=== PATIENT | male | born 1990 | race Caucasian/White ===

== ENCOUNTER 2023-08-15 18:23 | Outpatient (REF) | payer SELFPAY ==
[2023-08-15 15:42] LABS: Calculated LDL 130 mg/dL (<100); Cholesterol 188 mg/dL (<200); HDL Cholesterol 38 mg/dL (40-60); Triglyceride 101 mg/dL (<150)
== END 2023-08-15 18:24 | disposition home or self-care (01) ==
LOC: NCHCN 18:23
PROVIDERS: PCP Internal Medicine; Visit Provider Nurse Practitioner Family
DX: E66.9 Obesity, unspecified (principal); Z13.1 Encounter for screening for diabetes mellitus
CPT/HCPCS: 80061; 83036

== ENCOUNTER 2024-01-01 15:42 | Emergency (ER) | payer SELFPAY ==
[2024-01-01 15:44] VITALS: BP 145/81; PULSE 92; RESP 18; TEMP 37.2; O2SAT 97
--- NOTE | 2024-01-01 16:25 | W.ED.GENAD ---
Discharge Plan Disposition Patient Disposition: Home Condition: Improving Discharge Details Chief Complaint: Laceration Clinical Impression: Laceration of wrist Primary Care Provider: Jas Collier ED Provider: Arnav Olivier Home Meds and New Rx's Prescriptions: No Action fluoxetine 10 mg capsule 10 mg PO DAILY hydroxyzine HCl 100 mg tablet 25 mg PO DAILY ibuprofen 800 MG tablet 800 mg PO QID PRN PRN (Reason: Pain) Qty: 30 0RF albuterol sulfate 8.5 GM HFA aerosol inhaler 2 puff Inhalation PRN PRN aspirin 325 MG tablet,delayed release (DR/EC) 325 mg PO Discharge Instructions Instructions: Stitches and rena Additional Instructions: Keep wound clean and dry. Please return to the emergency department for any worsening symptoms. HPI General Date/Time Provider Initiated Documentation: 01/01/24 16:13. 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 Hemostatic no foreign bodies, up-to-date with tetanus booster within the last year Related Data Home Medications Medication Instructions Recorded Confirmed ibuprofen 800 mg tablet 800 mg PO QID PRN PRN Pain #30 tabs 09/14/14 01/01/24 albuterol sulfate 90 mcg/actuation 2 puff inhalation PRN PRN 12/26/14 01/01/24 aerosol inhaler aspirin 325 mg tablet,delayed 325 mg PO 03/19/17 release fluoxetine 10 mg capsule 10 mg PO DAILY 08/12/23 01/01/24 hydroxyzine HCl 100 mg tablet 25 mg PO DAILY 08/12/23 01/01/24 Previous Rx's Medication Instructions Recorded ibuprofen 800 mg tablet 800 mg PO QID PRN PRN Pain #30 tabs 09/14/14 Allergies Allergy/AdvReac Type Severity Reaction Status Date / Time kiwi Allergy Unknown unknown Verified 01/01/24 15:49 General Stated Complaint: Laceration JUANY: 3 Review of Systems Narrative: Review of Systems Constitutional: negative Eyes: negative ENT: negative Cardiovascular: negative Respiratory: negative Gastrointestinal: negative : negative Musculoskeletal: negative Skin: Wrist laceration Neurologic: negative Psych: negative Exam Narrative Exam Narrative: Physical Examination General: alert, awake, cooperative, resting comfortably, no acute distress HEENT: normocephalic, atraumatic Skin: See extremity Neuro: AAOx3, normal speech, moving all extremities Extremities: 1.5 cm mildly gaping laceration to ulnar volar aspect of right wrist, some exposed subcutaneous fat no exposed tendinous or vascular structures, median radial and ulnar nerve sensory distribution intact, full flexion both proximally and distally intact Extension intact in fingers and wrist, ulnar and radial pulses intact, no foreign bodies appreciated Course Vital Signs Vital signs: Vital Signs Temperature 37.2 C 01/01/24 15:44 Pulse 92 H 01/01/24 15:44 Respiratory Rate 18 01/01/24 15:44 Blood Pressure 145/81 H 01/01/24 15:44 Pulse Oximetry 97 01/01/24 15:44 Temperature 37.2 C 01/01/24 15:44 Temperature Source Temporal Artery Scan 01/01/24 15:44 Pulse 92 H 01/01/24 15:44 Respiratory Rate 18 01/01/24 15:44 Respiratory Effort Normal, Non-Labored 01/01/24 15:50 Blood Pressure 145/81 H 01/01/24 15:44 Blood Pressure Position Sitting 01/01/24 15:44 Pulse Oximetry 97 01/01/24 15:44 Oxygen Delivery Method Room Air 01/01/24 15:44 Oxygen Flow Rate 0 01/01/24 15:44 Procedures Laceration Laceration 1: Site: upper extremity Side (If applicable): right Size (cm): 1.5 Description: linear Depth: simple, single layer Local Anesthetic: other anesthetic (LET) Pre-repair: wound explored, irrigated extensively and deep structures intact Skin layer closed with: vicryl Size (cm): 5-0 Number of sutures: 4 Technique: simple, interrupted Medical Decision Making 33-year-old male presents after accidental laceration to right wrist while doing the [employer], pottery mug broke into 2 clean pieces, patient sustained 1.5 cm mildly gaping laceration to ulnar volar aspect of right wrist, some exposed subcutaneous fat no exposed tendinous or vascular structures, median radial and ulnar nerve sensory distribution intact, full flexion both proximally and distally intact Extension intact in fingers and wrist, ulnar and radial pulses intact, no foreign bodies appreciated; will apply LET gel for analgesia, will irrigate extensively, discussed obtaining screening x-ray for foreign body however patient would like to defer as he has limited insurance and reassures me that mug broke into to clean pieces did not shatter, no evidence of foreign body upon my inspection initially and after irrigation. Will closed with absorbable Vicryl sutures. Home care instructions return precautions to be given 17: 34 patient resting comfortably no acute distress, wound anesthetized with L ET gel, irrigated extensively, explored, no foreign bodies appreciated, no deep structures involved, closed with 4 x 5-0 Vicryl simple interrupted bacitracin and Steri-Strips applied; ulnar and radial pulse intact flexion extension and sensation and involved limb intact Home care instructions and return precautions given Quality:SDOH Health Related Social Needs: No Data to Display PFSH All Active Problems (Updated 01/01/24 @ 17:35 by Arnav Olivier MD) Laceration of wrist (Acute) Medical History (Updated 01/01/24 @ 17:35 by Arnav Olivier MD) Exercise induced bronchospasm Nicotine dependence Obesity Panic disorder with agoraphobia Generalized anxiety disorder Snoring Nonulcer dyspepsia Backache Pain in right knee Family History (Updated 08/26/23 @ 14:11 by Cecelia Leone) Other Alcoholism Asthma Social History Smoking/Tobacco Use Status: Former Tobacco Use Smoking risk assessment performed?: Yes Alcohol Intake: current Alcohol Intake frequency: holidays/special occasions only Drug use: Never Substance use type: does not use
[2024-01-01 17:43] VITALS: BP 145/81; PULSE 70; RESP 18; TEMP 37.2; O2SAT 97
== END 2024-01-01 17:43 | disposition home or self-care (01) ==
PROVIDERS: Emergency Provider Emergency Medicine; PCP Internal Medicine
DX: S61.511A Laceration without foreign body of right wrist, initial encounter (principal); Z79.82 Long term (current) use of aspirin; Z87.891 Personal history of nicotine dependence; W25.XXXA Contact with sharp glass, initial encounter; Y93.G1 Activity, food preparation and clean up
CPT/HCPCS: 12001; 99283

== ENCOUNTER 2024-05-08 15:51 | Outpatient (REF) | payer SELFPAY | END 2024-05-08 15:52 | disposition home or self-care (01) | LOC: LBN 15:51 | PROVIDERS: PCP Internal Medicine; Visit Provider Physician Assistant | DX: J02.9 Acute pharyngitis, unspecified (principal) | CPT/HCPCS: 87070 ==

== ENCOUNTER 2024-05-10 12:30 | Outpatient (CLI) | payer SELFPAY ==
--- NOTE | 2024-05-10 10:15 | DI.RAD_ITS ---
Exam(s) XR CHEST 2V PA LATERAL EXAM: XR CHEST 2V PA LATERAL CLINICAL HISTORY: cough, ? pneumonia,R05.9 TECHNIQUE: 2D digital imaging was performed. Two views. COMPARISON: CR ABD FLAT UPRIGHT PA CHEST from 08/10/2014 FINDINGS: HEART: Normal size. Aorta: Not dilated. PULMONARY VASCULATURE: Normal. MEDIASTINUM: Unremarkable. LUNGS: Focal infiltrate seen at left lung apex. Remainder of the lung bruner are clear PLEURAL SPACE: No pleural effusion or pneumothorax. BONE:Unremarkable for age. SOFT TISSUES: Unremarkable. IMPRESSION: Left upper lobe pneumonia. DATA REPOSITORY: RADIATION DOSE DELIVERED:
== END 2024-05-10 12:50 ==
LOC: DI 12:34
PROVIDERS: PCP Internal Medicine; Visit Provider Physician Assistant
DX: J18.9 Pneumonia, unspecified organism (principal)
CPT/HCPCS: 71046

== ENCOUNTER 2024-06-21 13:59 | Outpatient (RCR) | payer SELFPAY | END 2024-07-10 23:59 | disposition home or self-care (01) | LOC: CARDOPNVT 13:59 | PROVIDERS: PCP Internal Medicine; Visit Provider Nurse Practitioner Family | DX: R55 Syncope and collapse (principal) | CPT/HCPCS: 93225 ==

== ENCOUNTER 2024-06-21 14:25 | Outpatient (CLI) | payer SELFPAY ==
--- OUTSIDE RECORDS SUMMARY | 2024-06-21 14:30 | XMS_ITS | Clinical Summary ---
Author Organization [facility] Address [address] [place] [address] Care Team Providers Care Grades 9 12 Tutor Name Role Phone June Renee APRN Primary Care Provider [phone] Social History Tobacco Use Types Packs/Day Years Used Date Smoking Tobacco: Never Assessed Sex and Gender Information Value Date Recorded Sex Assigned at Not on file Legal Sex Male 18:04 EST Gender Identity Not on file Sexual Orientation Not on file Plan of Treatment Health Maintenance Due Date Last Done Comments Hepatitis C Screen 1992 Hepatitis B Vaccine (1 of 3 - 19+ 3-dose series) 04/03 COVID-19 Vaccine ( season) 2024 Care Teams Grades 9 12 Tutor Relationship Specialty Start Date End Date June Renee APRN [address] [facility] [address] [place] [address] PCP - General 12/11/13
--- OUTSIDE RECORDS SUMMARY | 2024-06-21 14:30 | XMS_ITS | Encounter Summary ---
Author Organization [facility] Address [facility] [place] [address] Care Team Providers Care Claims Associate Name Role Phone Geovanna Irwin MD Primary Care Provider [phone] Reason for Visit * Reason Comments Verrucous Vulgaris Encounter Details Date Type Department Care Team (Late st Contact Info) Description 02/19/2014 3:00 PM EDT Follow-Up Dermatology at [facility] [address] [place] [address] Margaret Miles MD [facility] [address] [place] [address] Warts (Primary Dx) Discharge Disposition: Home Social History Tobacco Use Types Packs/Day Years Used Date Smoking Tobacco: Every Day Sex and Gender Information Value Date Recorded Sex Assigned at Not on file Gender Identity Not on file Sexual Orientation Not on file documented as of this encounter Progress Notes * Ella Pollack MD - 02/19/2014 4:50 PM EDT I was the supervising physician working with dermatology resident Dr. Miles in the dermatology clinic during this patient visit. The level of Resident supervision for this patient visit was indirect supervision with direct supervision immediately available. (definition: [facility] GME Policy Statement on Graduate Medical Education, Supervision of Graduate Medical Trainees) I was immediately available to Dr. Miels for questions and discussion regarding this visit. I have reviewed her encounter note details and level of service. ELLA POLLACK MD Staff Physician * Margaret Miles MD - 02/19/2014 3:04 PM EDT DERMATOLOGY - NEW PATIENT NOTE Date of service: 02/19/2014 Charan Hough : 1990 Dermatology Resident Note: Margaret Miles MD Chief Problem: Chief Complaint Patient presents with ??? Verrucous Vulgaris Mr. Charan Hough is a 23 y.o. male. This is a new patient to me. Seen in consultation at the request of Dr. Good for laser treatment. HPI: Mr. Hough presents for treatment of warts on his hands. He has had LN multiple times and topical Aldara. Last treated by Dr Good about 1 month ago, treated with LN. No at home treatment present, states does not have Aldara left. Past Skin History: Warts Medical History: Patient Active Problem List Diagnosis Code ??? Viral warts, unspecified 078.10 Medications: No current outpatient prescriptions on file. SOCIAL HX: working [employer] FAMILY HX: lives with roommate Allergies: No Known Allergies Review of Systems: General: Feels well Skin: As per HPI; no other skin concerns Examination: Constitutional: Patient was alert, well-appearing and in no noticeable distress. Skin: A full skin examination was performed. This includes the head, neck, face and scalp includingbehind the ears. The chest, abdomen, back, and axillae, as well as the arms, hands, palms, fingers.Legs, feet, toes and soles were also examined. Buttocks and breasts were also examined with patientconsent. Genitalia were not examined. An abbreviated skin exam was performed. This includes: Specific skin findings: 1.bilateral hands - > 20 Verrucous papules - on right hand and 4 on right. Pin- point vascular pattern noted on dermoscopy. Diagnosis/Assessment/Treatment Plan: 1. Wart (Verruca vulgaris)- Discussed warts, rationale for wart therapy (relation of HPV in skin and clinical warts, therapy directed at reducing viral load; virus ultimately being controlled by immune response). Treatment options, risks and benefits discussed with the patient, including LN2, laser, mediplast.. Decision made with patient to proceed with PDL and at home mediplast. Procedure: Destruction of lesions- treated about 12 lesions total due to pain tolerance. Discussed procedure and expectations including risks and benefits. Potential risks include pain, blistering, skin breakdown, and incomplete treatment of wart. Verbal consent obtained. Settings: V-beam laser (595 nm) 7 mm spot size, 13.25J/m2, 0.45 ms 32 pulses There were no complications; the patient tolerated the procedure well. Post- procedure expectations (including discomfort management), wound care, and activity restrictions were reviewed. He will wait a few days, then begin applying Mediplast to the warts and covering with duct tape at least 3 nights per week. He will buff them down before applying the mediplast and has been advised to use a clean leeanna board each time. Follow-up: RTC in 4 weeks\. Instructed to call for questions or concerns. MOY ARIZMENDI LPN has performed the documentation for this encounter in the presence of and acting as a scribe for Margaret Miles MD, Dermatology Resident I performed the above scribed service and agree with the accuracy of the documentation in this encounter. Margaret Miles MD Resident in Dermatology [facility] staff dietitian research: Ella Pollack MD Section of Dermatology [facility] documented in this encounter Plan of Treatment Not on file documented as of this encounter Visit Diagnoses Diagnosis Warts- Primary Viral warts, unspecified documented in this encounter Care Teams Claims Associate Relationship Specialty Start Date End Date Geovanna Irwin MD [address] [place] [address] PCP - General 01/09/14 documented as of this encounter
--- OUTSIDE RECORDS SUMMARY | 2024-06-21 14:30 | XMS_ITS | Clinical Summary ---
[facility] [place] [address] Care Team Providers Care Hospitalist Name Role Phone Geovanna Irwin MD Primary Care Provider [phone] Allergies No known active allergies Medications No known medications Active Problems Problem Noted Date Diagnosed Date Viral warts, unspecified 01/24/2014 Social History Tobacco Use Types Packs/Day Years Used Date Smoking Tobacco: Every Day Sex and Gender Information Value Date Recorded Sex Assigned at Not on file Gender Identity Not on file Sexual Orientation Not on file Plan of Treatment Health Maintenance Due Date Last Done Comments HIV screen 2010 Hepatitis C Screening 2010 Hepatitis B vaccine (0-59 yrs) (1) 2011 Tetanus/Diphtheria/Pertussis Vaccines (1 - Tdap) 04/03 Covid-19 Vaccine (1 - 2023- season) 2024 Influenza (Flu) vaccine (1 o f 1 - Influenza standard series) 03/11/2024 Care Teams Hospitalist Relationship Specialty Start Date End Date Geovanna Irwin MD [address] [place] [address] PCP - General 01/09/14
--- OUTSIDE RECORDS SUMMARY | 2024-06-21 14:30 | XMS_ITS | Encounter Summary ---
Author Organization [facility] Address [address] [place] [address] Care Team Providers Care On Line Csr Name Role Phone Unavailable Primary Care Provider Unavailabl e Encounter Details Date Type Department Care Team (Latest Contact Info) Description 12/07/2013 11:49 EDT - 12/07/2013 23:59 EDT Hospital Encounter [address] [address] Unknown, Provider, MD Discharge Disposition: Home or Self Care Social History Tobacco Use Types Packs/Day Years Used Date Smoking Tobacco: Never Assessed Sex and Gender Information Value Date Recorded Sex Assigned at Not on file Legal Sex Male 18:04 EST Gender Identity Not on file Sexual Orientation Not on file documented as of this encounter Discharge Disposition Disposition Code Departure Means Destination Home or Self [facility]pc documented in this encounter Plan of Treatment Not on file documented as of this encounter Visit Diagnoses Not on filedocumented in this encounter
--- OUTSIDE RECORDS SUMMARY | 2024-06-21 14:30 | XMS_ITS | Encounter Summary ---
Author Organization [facility] Address [facility] [place] [address] Care Team Providers Care Router Operator Pin Name Role Phone Geovanna Irwin MD Primary Care Provider [phone] Reason for Visit * Reason Comments Verrucous Vulgaris Encounter Details Date Type Department Care Team (Late st Contact Info) Description 01/24/2014 9:00 AM EDT Office Visit Dermatology at [facility] [address] [place] [address] Franklin Good III, MD [facility] [address] [place] [address] Viral warts, unspecified Discharge Disposition: Home Social History Tobacco Use Types Packs/Day Years Used Date Smoking Tobacco: Every Day Sex and Gender Information Value Date Recorded Sex Assigned at Not on file Gender Identity Not on file Sexual Orientation Not on file documented as of this encounter Patient Instructions * Patient Instructions* Mason Max LPN - 01/24/2014 9:06 AM EDT You were treated today with Liquid Nitrogen. This is the most common treatment for warts. Liquid nitrogen is extremely cold, and freezes the surface of the skin, causing the lesion to flake off. Treatment with liquid nitrogen can be uncomfortable, but discomfort should subside after a couple of hours. The area treated will look red and irritated, and it may blister up or turn dark, then fall off.This is normal! You do not need and special treatment for the area, but you may find cold compresses and/or a lightapplication of Vaseline soothing. For best results, do not rub or pick at the healing lesion. Expected healing time is 3-4 weeks. Please contact the clinic at [phone] if the lesion has not fully resolved after 6 weeks. Plan: Treat warts on hands with Aldara 3 night a week, increase to 5 nights a week as tolerated. documented in this encounter Progress Notes * Mason Max LPN - 01/24/2014 8:49 AM EDT DERMATOLOGY CONSULT NOTE Date of service: 01/24/2014 Charan Hough : 1990 Provider: Franklin Good MD PROBLEM: The patient is seen at the request of GEOVANNA IRWIN MD, who instructed the patient to be seen for evaluation of above HPI Charan Hough is a 23 y.o. year old male. Here today for evaluation of warts on hands and face, present for approximately one year. Has been treated with LN2 multiple times by his PCP, and was recently prescribed Aldara, which he has not yet used due to concerns about the side effects. PAST MEDICAL HX: no SOCIAL HX: working [employer], [employer] business FAMILY HX: lives with roommate PATIENT SCREENING QUESTIONS DO YOU HAVE A PACEMAKER OR DEFIRILLATOR? no DO YOU HAVE ARTIFICIAL JOINTS? no Less than 2 year old? DO YOU HAVE AN ARTIFICIAL HEART VALVE? no What blood thinner do you take? none Do you take antibiotics before procedures? None ADR: No Known Allergies MEDS: Current Outpatient Prescriptions Medication Sig Dispense Refill ??? [DISCONTINUED] CIS Free Text Med - Albuterol 1-2 Puff(s), Inh, Q4-6H prn ??? [DISCONTINUED] atomoxetine (STRATTERA) 100 mg capsule ??? [DISCONTINUED] montelukast (SINGULAIR) 5 mg chewable tablet 5mg, PO, QHS There is no problem list on file for this patient. ROS General: feeling well Skin: denies other skin complaints EXAM General: NAD, pleasant, cooperative Skin: A total body skin exam except for areas covered by underwear was performed. This includes examination of the skin of the face, ears, neck, chest, axillae, left and right upper and lower extremities, hands and feet, abdomen, and except the areas covered by underwear were not examined. Significant skin findings: A. Multiple verrucous papules noted bilaterally over hands and fingers, approximately 19 warts on right hand and 4 on right . Pin-point vascular pattern noted on dermoscopy. B. Filiform verrucous papules noted right periorbital area. ASSESSMENT/PLAN: A. Warts (Verruca vulgaris) I discussed this condition with the patient and explored therapeutic options. I recommended paring and LN2 Procedure: Warts pared down with #15 blade. Procedure: Destruction of lesion(s) with cryotherapy. Number: 23 Location: as above Discussed procedure and expectations including risks (including risk of hypopigmentation) and benefits. Verbal consent obtained. Frozen with LN2, 15-30 second thaw time, TWICE. There were no complications; the patient tolerated the procedure well. Post-procedure expectations and wound care were reviewed. ?? Recommend patient apply Imiquimod (Aldara) 5% cream to some (but not all) warts starting 3 nights a week, can increase to 5 nights a week as tolerated. He has this on hand ?? Return for VBeam laser treatment. ?? Recommend patient stop smoking. B. Filiform warts - face ?? Procedure Note: Procedure: Destruction of lesion(s) with cryotherapy. Number: 4 Location: as above Discussed procedure and expectations including risks (including risk of hypopigmentation) and benefits. Verbal consent obtained. Frozen with LN2, 15-30 second thaw time, TWICE. There were no complications; the patient tolerated the procedure well. Post-procedure expectations and wound care were reviewed. RTC 3 weeks for fu and Vbeam treatment. These will be difficult ro eradicate and will take seveal treatments. Smoking cessatrion will help. I am documenting this encounter acting as the scribe for and in the presence of Dr. Good.: MASON MAX LPN I performed the above scribed service and agree with the accuracy of the documentation in this encounter. Franklin Good MD Section of Dermatology [facility] documented in this encounter Plan of Treatment Not on file documented as of this encounter Visit Diagnoses Diagnosis Viral warts, unspecified documented in this encounter Care Teams Router Operator Pin Relationship Specialty Start Date End Date Geovanna Irwin MD [address] [place] [address] PCP - General 01/09/14 documented as of this encounter
--- OUTSIDE RECORDS SUMMARY | 2024-06-21 14:30 | XMS_ITS | Encounter Summary ---
Author Organization [facility] Address [address] [place] [address] Care Team Providers Care Sports Activities Foul Judge Name Role Phone Unknown, Provider Primary Care Provider Jorgito Blanco APRN Primary Care Provider [phone] Encounter Details Date Type Department Care Team (Late st Contact Info) Description 12/07/2013 Results Only [facility] [phone] Jorgito Love APRN [address] [facility] [address] [place] [address] Social History Tobacco Use Types Packs/Day Years Used Date Smoking Tobacco: Never Assessed Sex and Gender Information Value Date Recorded Sex Assigned at Not on file Legal Sex Male 18:04 EST Gender Identity Not on file Sexual Orientation Not on file documented as of this encounter Plan of Treatment Not on file documented as of this encounter Procedures Procedure Name Priority Date/Time Associated Diagnosis Comments SURGICAL PATHOLOGY Routine 12/07/2013 9:28 EDT documented in this encounter Results * SURGICAL PATHOLOGY (12/07/2013 9:28 EDT) Pathology Report: SURGICAL PATHOLOGY REPORT Reports generated via electronic interface contain original data; however they are lacking the format of the original report. Caution should be taken when reading/interpreting unformatted reports. Name: ? MICHEL ROCHA ? Accession #: ? [id number] ? : ? 1990 (Age: 23) ??M ? Collect Date: ? 12/07/2013 ? Location: ? [facility] ? Receive Date: ? 12/10/2013 ? Provider: JORGITO [facility] D[facility]LL OPERATOR Copy to: ? Final Pathologic Diagnosis: SKIN OF FOREHEAD, RIGHT SIDE UPPER, SHAVE BIOPSY: - Verruca vulgaris. Microscopic Description: The stratum corneum is thickened by compact orthohyperkeratosis with tiers of parakeratosis and foci of hemorrhage. ??The epidermis is hyperplastic with papillomatosis and acanthosis. ??The acanthotic rete ridges have an inward-bending configuration. ??The superficial keratinocytes have perinuclear vacuoles. ??The granular layer is accentuated. ??(Dr. Suggs)/[facility] Document reviewed and electronically signed by: TYRA SUGGS MD Report ??Date: 12/12/2013 14:59 By the signature above, the attending physician certifies that he/she has personally conducted a gross and/or microscopic examination of the described specimens and rendered or confirmed the above diagnosis. Specimen(s) Received: Lesion R side upper forehead shave biopsy Clinical History: 0.5 cm x 0.3 cm in size x 0.2 cm in height Gross Description: ? Received in formalin labelled with proper patient identification (initials R, R) and forehead is a shave biopsy of an ovoid trevino-white crusted papule (0.4 x 0.3 x 0.2 cm). Bisected and submitted intact in 1. Rena Moseley 12/11/2013 09:54 AM End of Report [facility] 12/07/2013 9:28 EDT 12/10/2013 9:28 EDT us Jorgito Love [facility] DRILL OPERATOR PATHOLOGY ORDERABLES Radha meza Result [facility] [address] [place] [address] documented in this encounter Visit Diagnoses Not on filedocumented in this encounter Care Teams Sports Activities Foul Judge Relationship Specialty Start Date End Date Unknown, Provider, PCP - General 12/10/13 12/10/13 Jorgito Love APRN [address] [place] [id number] PCP - General 12/11/13 documented as of this encounter
--- OUTSIDE RECORDS SUMMARY | 2024-06-21 14:30 | XMS_ITS | Encounter Summary ---
Author Organization [facility] Address [facility] [place] [address] Care Team Providers Care Commodity Buyer Name Role Phone Geovanna Irwin MD Primary Care Provider [phone] Reason for Visit * Reason Comments Verrucous Vulgaris Encounter Details Date Type Department Care Team (Late st Contact Info) Description 03/26/2014 2:30 PM EDT Follow-Up Dermatology at [facility] [address] [place] [address] Nelson Frank MD [facility] [place] [address] Common wart (Primary Dx); Viral warts, unspecified Discharge Disposition: Home Social History Tobacco Use Types Packs/Day Years Used Date Smoking Tobacco: Every Day Sex and Gender Information Value Date Recorded Sex Assigned at Not on file Gender Identity Not on file Sexual Orientation Not on file documented as of this encounter Progress Notes * Ella Pollack MD - 03/26/2014 3:57 PM EDT I was the supervising physician working with dermatology resident Dr. Frank in the dermatologyclinic during this patient visit. The level of Resident supervision for this patient visit was indirect supervision with direct supervision immediately available. (definition: [facility] Policy Statement on Graduate Medical Education, Supervision of Graduate Medical Trainees) I was immediately available to Dr. Frank for questions and discussion regarding this visit. I have reviewed her encounter note details and level of service. ELLA POLLACK MD Staff Physician * Nelson Frank MD - 03/26/2014 3:03 PM EDT DERMATOLOGY - NEW PATIENT NOTE Date of service: 03/26/2014 Charan Hough : 1990 Dermatology Resident Note: Margaret Miles MD Chief Problem: Chief Complaint Patient presents with ??? Verrucous Vulgaris Mr. Charan Hough is a 23 y.o. male. Previously seen by Margaret Miles MD 02/19/2014. HPI: Mr. Hough presents for treatment of warts on his hands. He has had LN multiple times and topical Aldara. Reports significant pain after last laser treatment. No at home treatment present, states was unable to cut Mediplast at home. Past Skin History: Warts Medical History: Patient Active Problem List Diagnosis Code ??? Viral warts, unspecified 078.10 Medications: No current outpatient prescriptions on file. SOCIAL HX: working [employer] FAMILY HX: lives with roommate Allergies: No Known Allergies Review of Systems: General: Feels well Skin: As per HPI; no other skin concerns Examination: Constitutional: Patient was alert, well-appearing and in no noticeable distress. Skin: An abbreviated skin exam was performed. This includes: Bilateral hands Specific skin findings: 1.bilateral hands - > 20 Verrucous papules - Diagnosis/Assessment/Treatment Plan: 1. Wart (Verruca vulgaris) - improving. Discussed warts, rationale for wart therapy (relation of HPV in skin and clinical warts, therapy directed at reducing viral load; virus ultimately being controlled by immune response). Treatment options, risks and benefits discussed with the patient, including LN2, laser, mediplast.. Decision made with patient to proceed with PDL and at home mediplast. Willdecrease energy today given intense pain after last treatment. Procedure: Destruction of lesions- treated about 12 lesions total due to pain tolerance. Discussed procedure and expectations including risks and benefits. Potential risks include pain, blistering, skin breakdown, and incomplete treatment of wart. Verbal consent obtained. Settings: V-beam laser (595 nm) 5 mm spot size, 12.75J/m2, 0.45 ms 31 pulses There were no complications; the patient [...] leeanna board each time. Follow-up: RTC in 6 weeks. Instructed to call for questions or concerns. AICHA MAYEN LPN has performed the documentation for this encounter in the presence of and acting as a scribe for NELSON FRANK MD I performed the above scribed service and agree with the accuracy of the documentation in this encounter. Nelson Frank MD Resident in Dermatology [facility] Staff extension clerk: Ella Pollack MD Section of Dermatology [facility] documented in this encounter Plan of Treatment Not on file documented as of this encounter Visit Diagnoses Diagnosis Common wart- Primary Other specified viral warts Viral warts, unspecified documented in this encounter Care Teams Commodity Buyer Relationship Specialty Start Date End Date Geovanna Irwin MD [address] [place] [id number] PCP - General 01/09/14 documented as of this encounter
--- OUTSIDE RECORDS SUMMARY | 2024-06-21 14:30 | XMS_ITS | Referral Summary ---
Author Organization [facility] Address [address] [place] [address] Care Team Providers Care Floral Department Specialist Name Role Phone June Renee APRN Primary Care Provider [phone] Social History Tobacco Use Types Packs/Day Years Used Date Smoking Tobacco: Never Assessed Sex and Gender Information Value Date Recorded Sex Assigned at Not on file Legal Sex Male 18:04 EST Gender Identity Not on file Sexual Orientation Not on file Plan of Treatment Not on file Care Teams Floral Department Specialist Relationship Specialty Start Date End Date June Renee APRN [address] [place] [address] PCP - General 12/11/13
[2024-06-21 14:40] LABS: Abs Immature Grans 0.06 10^3/uL (0.0-0.06); Absolute Basophil Count 0.06 10^3/uL (0.0-0.2); Absolute Eosinophil Count 0.11 10^3/uL (0.0-0.7); Absolute Lymphocyte Count 1.86 10^3/uL (1.2-3.4); Absolute Monocyte Count 0.45 10^3/uL (0.1-0.8); Absolute Neutrophil Count 3.71 10^3/uL (1.2-6.7); Eosinophils % 1.8 %; HCT 47.6 % (40.0-50.0); HGB 16.9 g/dL (13.5-17.5); Lymphocytes % 29.8 %; MCH 30.1 pg (27.0-33.0); MCHC 35.5 % (32.0-36.0); MCV 85 fL (80-95); Monocytes % 7.2 %; Neutrophils % 59.2 %; Platelet Count 264 10^3/uL (130-400); RBC 5.61 10^6/uL (4.36-5.78); RDW 12.4 % (11.8-14.1); WBC 6.25 10^3/uL (4.4-10.8)
[2024-06-21 15:35] LABS: ALT 23 U/L (16-63); AST 17 U/L (15-37); Albumin 4.4 g/dL (3.4-5.0); Alkaline Phosphatase 88 U/L (46-116); BUN 24 mg/dL (7-18); Bilirubin, Total 0.76 mg/dL (0.2-1.0); Calcium 8.9 mg/dL (8.5-10.1); Chloride 106 mmol/L (98-107); Estimated GFR 102.55 (mL/min/1.73m2); Glucose 83 mg/dL (74-106); Sodium 144 mmol/L (136-145); TSH (W/Ref FT4) 0.68 uIU/mL (0.36-3.74); Total Protein 7.6 g/dL (6.4-8.2)
== END 2024-06-21 14:26 | disposition home or self-care (01) ==
PROVIDERS: PCP Internal Medicine; Visit Provider Nurse Practitioner Family
DX: R55 Syncope and collapse (principal)
CPT/HCPCS: 36415; 80053; 84443; 85025

== ENCOUNTER 2024-07-13 13:22 | Outpatient (RCR) | payer SELFPAY ==
--- NOTE | 2024-07-17 14:02 | W.HOLTRPT ---
Date of service: 07/17/24 Time of Service: 14:02 Holter Monitor Report Referring Provider:: June Renee Indications:: Syncope Holter Monitor Note: This is a 48-hour Holter monitor. Rhythm throughout was sinus with an average heart rate of 86. Minimum was 48, maximum 173. There was 1 premature ventricular contraction A total of 21 premature atrial contractions were seen. There was no atrial fibrillation, no high-grade AV block, no pauses greater than 3 seconds. No symptoms were reported
== END 2024-08-10 23:59 | disposition home or self-care (01) ==
LOC: CARDOPNVT 13:22
PROVIDERS: PCP Internal Medicine; Visit Provider Internal Medicine Cardiovascular Disease
DX: R55 Syncope and collapse (principal); I49.1 Atrial premature depolarization
CPT/HCPCS: 93225; 93226

== ENCOUNTER 2024-10-22 12:59 | Outpatient (CLI) | payer SELFPAY ==
--- NOTE | 2024-10-22 11:00 | DI.RAD_ITS ---
Exam(s) XR LUMBAR SPINE COMPLETE EXAM: XR LUMBAR SPINE COMPLETE CLINICAL HISTORY: eval pathology M54.50 low back pain, unspecified. TECHNIQUE: 2D digital imaging was performed. COMPARISON: No exams were available for comparison FINDINGS: Five views. No evidence of fracture or listhesis nor pars defects. No significant disc space narrowing although there is mild anterior osseous lipping at L4-5 level which is indirect evidence of degenerative disc disease at this level. Facet joints appear unremarkable at all levels. Sacroiliac joints unremarkab le. Spina bifida occulta at S1 incidentally noted. No scoliosis. Transverse process is intact. Wyatt ne density normal. No osseous lesions. IMPRESSION: Subtle evidence of degenerative disc disease at L4-5 level. DATA REPOSITORY: RADIATION DOSE DELIVERED:
--- NOTE | 2024-10-22 11:00 | DI.RAD_ITS ---
Exam(s) XR THORACIC SPINE COMPLETE EXAM: XR THORACIC SPINE COMPLETE CLINICAL HISTORY: eval pathology M54.6 pain in tspine. TECHNIQUE: 2D digital imaging was performed. COMPARISON: No exams were available for comparison FINDINGS: Two views-AP and lateral No evidence of fracture or listhesis nor abnormal widening of the paraspinal lines. No scoliosis. At T11-T12 level there is osseous fusion across the anterior aspect of the disc space. This eliminat es the disc space is seen on the lateral view at this level. Possibly developmental. Otherwise ther e is some anterior osseous lipping at multiple thoracic spine levels without disc space narrowing. IMPRESSION: T11-T12 finding as above. If clinically indicated follow-up MRI can be performed. This type of fusi on might result in additional stress upon adjacent disc spaces. DATA REPOSITORY: RADIATION DOSE DELIVERED:
== END 2024-10-22 13:19 ==
LOC: DI 13:00
PROVIDERS: PCP Internal Medicine; Visit Provider Nurse Practitioner Family
DX: M54.6 Pain in thoracic spine (principal); M51.360 Other intervertebral disc degeneration, lumbar region with discogenic back pain only
CPT/HCPCS: 72072; 72110

== ENCOUNTER 2024-11-15 00:35 | Outpatient (CLI) | payer SELFPAY ==
--- NOTE | 2024-11-15 | DI.MRI_ITS ---
Exam(s) MR LUMBAR SPINE WO EXAM: MR LUMBAR SPINE WO CLINICAL HISTORY: Q76.0 Spina bifida occulta. TECHNIQUE: Multiplanar multisequence MRI of the Lumbar spine was performed. COMPARISON: CR XR LUMBAR SPINE COMPLETE from 10/22/2024 FINDINGS: Conus medullaris is at normal level. There is no evidence of conus mass nor subjacent clumping of in trathecal nerve roots to suggest arachnoiditis. The distal thecal sac appears unremarkable.There is no evidence of Tarlov intrasacral cysts nor other significant findings within the sacral canal Bones:There are no fractures nor ominous osseous lesions in the lumbar vertebral bodies and visualize d sacrum. With respect to the individual levels... T12-L1: Unremarkable L1-2: Normal disc height and signal. No disc herniation nor central canal stenosis.No foraminal steno sis L2-3: Normal disc height. No disc herniation nor central canal stenosis.No foraminal stenosis.No face t arthropathy. L3-4: Normal disc height. No disc herniation or central canal stenosis.No foraminal stenosis.No face t arthropathy. L4-5: Preserved disc height. Slightly decreased disc hydration signal. Posteriorly there is central subligamentous annular bulging with small central disc protrusion at this level which extends woods boss iorly 3 mm and is approximately the 11 mm wide. This contacts the thecal sac. Central canal dimensi ons are lower normal at this level. There is no extension of the protrusion into the exiting neural foramina and there is no foraminal stenosis on either side at this level. L5-S1: Normal disc height and signal. No disc herniation or central canal stenosis. No foraminal st enosis. No significant facet arthropathy. Soft tissues: paraspinal soft tissues appear unremarkable. IMPRESSION: 1. At L4-5 level there is a small central subligamentous disc protrusion as described above. There i s no prominent central spinal canal stenosis and no significant foraminal stenosis at this level. No the case facet arthrosis. 2. Other levels appear unremarkable. 3. There is no abnormal marrow signal in the lumbar vertebrae. DATA REPOSITORY:
== END 2024-11-15 00:55 ==
LOC: DI 00:35
PROVIDERS: PCP Internal Medicine; Visit Provider Nurse Practitioner Family
DX: Q76.0 Spina bifida occulta (principal); M51.26 Other intervertebral disc displacement, lumbar region
CPT/HCPCS: 72148

== ENCOUNTER 2025-03-18 00:03 | Emergency (ER) | payer SELFPAY ==
[2025-03-18] VITALS (15 sets, daily range): BP systolic 126–139; BP diastolic 80–89; PULSE 89–99; RESP 18; TEMP 36.7; O2SAT 95–96
[2025-03-18] MEDS: Sucralfate 1 GM TAB PO (01:01)
[2025-03-18] MEDS: Famotidine 20 MG/2 ML VIAL IVP (01:01)
[2025-03-18 01:02] LABS: Abs Immature Grans 0.06 10^3/uL (0.0-0.06); HCT 46.4 % (40.0-50.0); HGB 16.5 g/dL (13.5-17.5); Immature Grans % 0.8 %; MCH 30.0 pg (27.0-33.0); MCHC 35.6 % (32.0-36.0); MCV 84 fL (80-95); MPV 10.6 fL (8.0-11.0); Platelet Count 222 10^3/uL (130-400); RBC 5.50 10^6/uL (4.36-5.78); RDW 12.3 % (11.8-14.1); RDW-SD 37.7 fL; WBC 7.44 10^3/uL (4.4-10.8)
[2025-03-18] MEDS: Pantoprazole 40 MG VIAL IVP (01:02)
[2025-03-18 01:18] LABS: INR 1.1 (0.9-1.1); PTT Activated 24.7 sec (20.6-30.2); Prothrombin Time 10.9 sec (9.1-11.1)
[2025-03-18 01:44] LABS: ALT 27 U/L (16-63); AST 14 U/L (15-37); Albumin 4.2 g/dL (3.4-5.0); Alkaline Phosphatase 89 U/L (46-116); Anion Gap 9.5 mmol/L (3-11); BUN 20 mg/dL (7-18); Bilirubin, Total 0.8 mg/dL (0.2-1.0); CO2 26.5 mmol/L (21.0-32.0); Calcium 8.9 mg/dL (8.5-10.1); Chloride 104 mmol/L (98-107); Estimated GFR 102.55 (mL/min/1.73m2); Glucose 139 mg/dL (74-106); Lipase 38 U/L (<78); Potassium 3.5 mmol/L (3.5-5.1); Sodium 140 mmol/L (136-145); Total Protein 7.3 g/dL (6.4-8.2)
--- NOTE | 2025-03-18 02:37 | ED.GENADUL_ITS ---
Discharge Plan Disposition Patient Disposition: Home Condition: Good Discharge Details Clinical Impression: Hematemesis Primary Care Provider: Jas Collier ED Provider: Gutierrez Chávez Home Meds and New Rx's Prescriptions: New sucralfate [Carafate] 1 gram tablet 1 g PO BID Qty: 60 0RF pantoprazole [Protonix] 20 mg tablet,delayed release (DR/EC) 20 mg PO DAILY Qty: 60 0RF famotidine 20 mg tablet 20 mg PO DAILY Qty: 60 0RF No Action fluoxetine 10 mg capsule 10 mg PO DAILY hydroxyzine HCl 100 mg tablet 25 mg PO DAILY multivitamin Tablet 1 tab PO DAILY Discharge Instructions Instructions: GI bleed Additional Instructions: At this time your workup has returned reassuring. There is no signs of continued bleeding, hemoglobin is stable. As we discussed together I would recommend following up closely with surgery for discussion on EGD and colonoscopy. Please avoid any tomato-based products, citrus based products or spicy foods. Please stick with a bland diet. To help with the concern for potential ulcer or gastritis we have given you a prescription for antiacid and acid reduction medications. Please take these as prescribed. If you notice any worsening of your symptoms, or any new symptoms such as vomiting, diarrhea, fever, chills, shortness of breath, chest pain, numbness, weakness, or fainting , please return immediately to the emergency department for reevaluation. Please follow up with your primary care provider as soon as possible for reassessment and reevaluation. As always, it was a pleasure participating in your medical care today. Referrals: Jas Collier MD [Primary Care Provider, Medicine] [facility] General Date/Time Provider Initiated Documentation: 03/18/25 00:09 . [facility] Narrative: This is a 34-year-old male with no significant past medical history who presents today for evaluation of diarrhea and 2 episodes of vomiting with blood in the second episode. Patient states that chronically throughout his life he often has notable abdominal cramping after certain meals, and will then have subsequent explosive diarrhea and occasionally vomit once. Today for lunch she had [employer] and then for dinner he had feel burgers that were cooked medium well. His significant other had the same food and did not have any subsequent symptoms. His abdominal pain and cramping have resolved after the episodes of diarrhea and vomiting. He has had no subsequent hematemesis aside for the in itial 2 episodes. He states that he has never had blood in his vomitus before. He denies seeing any dark or tarry stools or any blood in his stools. Patient does admit to a family history of celiac's disease stomach cancer in first and second-degree relatives. He has not had a colonoscopy or EGD before. He is not on blood thinners. He has no other complaints at this time. Related Data Home Medications ?Medication ?Instructions ?Recorded ?Confirmed fluoxetine 10 mg capsule 10 mg PO DAILY 08/12/2303/04 hydroxyzine HCl 100 mg tablet 25 mg PO DAILY 08/12/23 03/18/25 famotidine 20 mg tablet 20 mg PO DAILY #60 tabs 03/04 multivitamin 1 tab PO DAILY 03/18/2503/04 pantoprazole 20 mg tablet,delayed 20 mg PO DAILY #60 t abs 03/18/25 release (Protonix) sucralfate 1 gram tablet (Carafate) 1 g PO BID #60 tab s 03/18/25 Previous Rx's ?Medication ?Instructions ?Recorded famotidine 20 mg tablet 20 mg PO DAILY #60 tabs 03/04 pantoprazole 20 mg tablet,delayed 20 mg PO DAILY #60 t abs 03/18/25 release (Protonix) sucralfate 1 gram tablet (Carafate) 1 g PO BID #60 tab s 03/18/25 Allergies Allergy/AdvReac Type Severity Reaction Status Date / Time kiwi Allergy Unknown unknown Verified 03/18/25 00:15 General Stated Complaint: Abd Prob JUANY: 3 Exam Narrative Exam Narrative: 1.Const: Well-nourished, Well-developed, appearing stated age 2.Eyes: PERRL, no conjunctival injection, and symmetrical lids. 3.ENT: Atraumatic external nose and ears. Moist MM. Neck: Symmetric, trachea midline, No thyromegaly. 4.CVS: +S1/S2, Peripheral pulses 2+ and equal in all extremities. Brisk capillary refill in all extremities. 5.RESP: Unlabored respiratory effort. Clear to auscultation bilaterally. No wheezes rales or rhonchi 6.GI: Soft, Nontender/Nondistended, No hepatosplenomegaly. No guarding or rebound. 7.MSK: Normocephalic/Atraumatic, Extremities w/o deformity or ttp No cyanosis or clubbing, Normal movement of all extremities 8.Skin: Warm, Dry. No rashes or lesions. 9.Neuro: marine engineer II-XII grossly intact. Sensation grossly intact, no focal neurologic deficits. 10.Psych: (AAO) x3. Appropriate mood and affect Course Vital Signs Vital signs: Vital Signs Temperature 36.7 C 03/18/25 00:10 Pulse 92 H 03/18/25 00:10 Respiratory Rate 18 03/18/25 00:10 Blood Pressure 138/89 03/18/25 00:10 Pulse Oximetry 95 03/18/25 00:10 Temperature 36.7 C 03/18/25 00:14 Pulse 89 03/18/25 01:50 Respiratory Rate 18 03/18/25 00:14 Blood Pressure 126/80 03/18/25 01:46 Blood Pressure Mean 88 03/18/25 01:46 Pulse Oximetry 95 03/18/25 01:50 Oxygen Delivery Method Room Air 03/18/25 00:14 Oxygen Flow Rate 0 03/18/25 00:10 Pain Level 1 03/18/25 00:14 Lab/Test Results Lab/Test Results: Laboratory Tests Range/Units 03/18/25 00:50 WBC (4.4-10.8) 10^3/uL 7.44 RBC (4.36-5.78) 10^6/uL 5.50 Hgb (13.5-17.5) g/dL 16.5 Hct (40.0-50.0) % 46.4 MCV (80-95) fL 84 MCH (27.0-33.0) pg 30.0 MCHC (32.0-36.0) % 35.6 RDW (11.8-14.1) % 12.3 Plt Count (130-400) 10^3/uL 222 MPV (8.0-11.0) fL 10.6 Immature Gran % % 0.8 Neutrophils % % 56.8 Lymphocytes % % 32.1 Monocytes % % 7.1 Eosinophils % % 2.4 Basophils % % 0.8 Nucleated RBC % (0.0-0.3) % 0.0 Absolute Neutrophils (1.2-6.7) 10^3/uL 4.22 Absolute Lymphocytes (1.2-3.4) 10^3/uL 2.39 Absolute Monocytes (0.1-0.8) 10^3/uL 0.53 Absolute Eosinophils (0.0-0.7) 10^3/uL 0.18 Absolute Basophils (0.0-0.2) 10^3/uL 0.06 PT (9.1-11.1) sec 10.9 INR (0.9-1.1) 1.1 APTT (20.6-30.2) sec 24.7 Sodium (136-145) mmol/L 140 Potassium (3.5-5.1) mmol/L 3.5 Chloride (98-107) mmol/L 104 Carbon Dioxide (21.0-32.0) mmol/L 26.5 Anion Gap (3-11) mmol/L 9.5 BUN (7-18) mg/dL 20 H Creatinine (0.70-1.30) mg/dL 1.0 Est GFR (CKD-EPI 2020) (mL/min/1.73m2) 102.55 Glucose (74-106) mg/dL 139 H Calcium (8.5-10.1) mg/dL 8.9 Total Bilirubin (0.2-1.0) mg/dL 0.8 AST (15-37) U/L 14 L ALT (16-63) U/L 27 Alkaline Phosphatase (46-116) U/L 89 Total Protein (6.4-8.2) g/dL 7.3 Albumin (3.4-5.0) g/dL 4.2 Lipase (<78) U/L 38 ABO/Rh O Positive Antibody Screen NEGATIVE Medical Decision Making This is a 34-year-old male with no significant past medical history who presents today for evaluation of diarrhea and 2 episodes of vomiting with blood in the second episode. Patient states that chronically throughout his life he often has notable abdominal cramping after certain meals, and will then have subsequent explosive diarrhea and occasionally vomit once. Today for lunch she had [employer] and then for dinner he had feel burgers that were cooked medium well. His significant other had the same food and did not have any subsequent symptoms. His abdominal pain and cramping have resolved after the episodes of diarrhea and vomiting. He has had no subsequent hematemesis aside for the initial 2 episodes. He states that he has never had blood in his vomitus before. He denies seeing any dark or tarry stools or any blood in his stools. Patient does admit to a family history of celiac's disease stomach cancer in first and second-degree relatives. He has not had a colonoscopy or EGD before. He is not on blood thinners. He has no other complaints at this time. Exam demonstrates a well-appearing male with a nontender abdomen. No bloody stools. Differential includes gastric ulcer, Crohn's disease, chronic gastritis. Symptoms appear inconsistent with esophageal varices as he does not drink alcohol regularly at all. He denies any binge drinking. Patient's vitals are stable. No evidence of massive upper GI bleed. No crepitus over the neck or chest. No retching to suggest Boerhaave or Ally-Alonzo tear. No chest pain at this time. We will give Carafate, Protonix and famotidine. Will get blood work to evaluate for hemoglobin status, bleeding abnormality, or thrombocytopenia. We will type and screen, check lipase for pancreatitis, monitor closely and reassess. 3 AM Laboratory workup is returned benign, lipase normal, hemoglobin and platelets normal. Patient continues to feel well, he tolerated p.o. trial. We discussed CT imaging to evaluate for gastric wall thickening or other abnormality. Patient has declined at this time as they do not have any insurance. We discussed risks and benefits of this plan and path forward, and the patient understands. Patient accepts the risks of this decision. Understanding this, I do feel that the patient still would benefit from outpatient EGD and colonoscopy on a nonemergent/urgent basis. We will place surgical referral. Will start the patient on Protonix famotidine and Carafate for home. Recommend dietary changes. With no further subsequent episodes of vomiting or bloody vomit for that matter I do feel patient is stable for discharge at this time. Differentia l remains highest for gastric ulcer. Will recommend continued close outpatient follow-up. With no persistent vomiting, stable vital signs and no evidence of hemoglobin drop I do feel that the patient does not meet criterion for emergent EGD. Discussed red flags for which to return. I have extensively reviewed the treatment plan and discharge instructions with the patient and their family. I have addressed all patient concerns at this time. The patient and family was made aware of what symptoms to monitor for that would warrant a return to the emergency department. Discussed the plan with the patient and family, they demonstrate verbal understanding and agreement with our assessment and plan at this time. The documentation in this chart was dictated using [employer] dictation software. Please excuse any dictation errors. PFSH All Active Problems (Updated 03/18/25 @ 02:38 by Gutierrez Chávez DO) Hematemesis (Acute) Medical History Exercise induced bronchospasm Nicotine dependence Obesity Panic disorder with agoraphobia Generalized anxiety disorder Snoring Nonulcer dyspepsia Backache Pain in right knee Family History Other Alcoholism Asthma Social History Smoking/Tobacco Use Status: Former Tobacco Use Smoking risk assessment performed?: Yes Alcohol Intake: current Alcohol Intake frequency: holidays/special occasions only Drug use: Never Substance use type: does not use
[2025-03-18] MEDS: Ondansetron O.D.T. 4 MG TABEF, 3 TABS/BTL PO (02:47)
== END 2025-03-18 03:14 | disposition home or self-care (01) ==
LOC: ER 02:54
PROVIDERS: Emergency Provider Student in an Organized Health Care Education/Training Program; PCP Internal Medicine
DX: K92.0 Hematemesis (principal); R19.7 Diarrhea, unspecified
CPT/HCPCS: 99283 ×2; 80053; 83690; 86850; 86900; 86901; 85025; 85610; 85730; J2470